=== PATIENT | female | born 1990 | race Two or more races ===

== ENCOUNTER 2020-05-09 18:20 | Inpatient (IN) | payer OTHER ==
[~2020-05-09] VITALS: Ht 165.1 cm; Wt 90.7 kg
--- NOTE | 2020-05-09 18:49 | NUR ---
SE RECIBE PACIENTE ALERTA Y ORIETNADA X 3. PACIENTE REFIERE TENER CONGESTION,DIFICULTAD RESPIRATORIO, DOLOR PELVICO POR MENSTRUACCION SE REALIZA SIGNOS VITALES.PACIETNE PRESENTA SATURACCION BAJA. SE COLOCA PACIENTE EN ASMA UNIT.
--- NOTE | 2020-05-09 19:25 | NUR ---
PT ALERTA Y ORIENTADA X3 ESFERAS SE LE ORIENTA SOBRE TX Y REFIERE ENTEDER. SE CELE MUESTRAS DE BONNIE Y VENOPUNCION CON TECNICAS ASEPTICAS. SE ADMINISTRAN MEDICAMENTOS E IVLFUIDS ORDENADOS. PT TOLERA TX. PENDIENTE CT DE PECHO. PENDIENTE ABG NOTIFICADAS A MS JESUS MANUEL.
--- NOTE | 2020-05-09 21:36 | NUR ---
7:45PM PTE SE LLEVA A AREA DE COVID SE COLOCA EN CAMA CON BARANDAS ELEVADAS.SE CONECTA A MONITOR CARDIACO Y OXIMETRIA.PTE SATURANDO A 35% POR SATUROMETRO. SE LE COLOCA NON REABRETHING AL 100%. 8:00PM ORDENA ENTUBACION ENDOTRAQUEAL PREVENTIVO. SE COMIENZA ENTUBACION. SE JEVON PTE CON 40ML DE PROPOFOL.PTE COMBATIVA EN TODO MOMENTO.SE RESTRINGE X5 PUNTOS,POR ORDEN MEDICA.SE SUCCIONA A PTE Y SE OBSERVAN 150ML DE RESIDUAL GASTRICO. 8:25PM RNA ELPIDIO, ENTUBA A PTE ENDOTRAQUEAL. 8:30PM SE JAVON CULTIVO DE ESPUTO. 8:45PM SE CANALIZA EN MANO DERECHA AREA AMPARO DE EDEMA Y DE ENROJECIMIENTO. SE COLOCA DRIP DE LEVOPHED 8MG/250ML BAJANDO A 5ML/HR. SE COLOCA DRIP DE PROPOFOL 100MG/100ML BAJANDO A 40ML/HR.SE COLOCA PTE EN POSICION HADDAD. SE COLOCA PTE PRIETO DRENANDO 50ML DE ORINA COLOR AMARILLO JAM. PTE AL MOMENTO SE ENCUENTRA EN MENSTRUACCION,SE LIMPIA Y SE LE COLOCA PAMPER. 9:00PM SE ENTREGA PTE A SOBEIDA.
--- NOTE | 2020-05-09 22:20 | NUR ---
9:00PM- SE RECIBE PTE ALERTA, ORIENTADA X 3 ESFERAS Y COMBATIVA EN CAMA CON CABECERA A 45 GRADOS Y BARANDAS ELEVADAS POR SEGURIDAD. INTUBADA CON TUBO 6.5 Y CONECTADA A VENTILADOR MECANICO EL CUAL PRESENTA LOS SIGUIENTES PARAMETROS: VT:500, MODE: CMV, PEEP:5, R:16 Y FIO2:100%. RECIBIENDO IV'S 0.9NSS BAJANDO A 120ML/HR POR VENOPUNCION EN BRAZO DERECHO LA CUAL SE ENCUENTRA AMPARO DE EDEMA Y ERITEMA. LEVOPHED 8MG/D5W 250ML BAJANDO A 5ML/HR Y PROPOFOL 1000MG/100ML BAJANDO A 20ML/HR POR VENOPUNCIONES EN BRAZO MT AMPARO DE EDEMA Y ERITEMA. RESTRINGIDA EN EXTREMIDADES INFERIORES Y SUPERIORES. SONDA URINARIA DRENANDO A GRAVEDAD. SE MANTIENE A PTE BAJO OBSERVACION. 9:30PM- PTE SE DUERME Y YA NO SE ENCUENTRA COMBATIVA. SE REALIZA SUCCION, PRESENTANDO SECRECIONES SANGUINOLENTAS. 10:00- SE SUCCIONA PTE Y SE MANTIENE BAJO OBSERVACION. 10:29PM- REALIZA ABG POST INTUBACION. SE MANTIENE EN OBSERVACION.
--- NOTE | 2020-05-09 22:57 | NUR ---
ORDENA VERBALMENTE ADMINISTRAR VERDED 100MG/100 0.9NSS A BAJAR A 5ML/HR Y BAJAR DRIP DE PROPOFOL A 20ML/HR.
--- NOTE | 2020-05-09 23:00 | NUR ---
PENDIENTE CT CHEST EL CUAL NO SE REALIZO DEBIDO A QUE PTE SE ENCUENTRA INESTABLE.
--- NOTE | 2020-05-09 23:05 | NUR ---
CT DE PECHO PENDIENTE DEBIDO A QUE PTE SE ENCUENTRA INESTABLE. SE NOTIFICA A . ORDENA CAMBIAR PARAMETROS DEL VENTILADOR: VT:450, PEEP:10, R:20.KelseyKEN EJECUTA ORDENES MEDICAS.
--- NOTE | 2020-05-10 00:11 | NUR ---
11:10PM SE RECIBE PTE DEL TURNO ANTERIOR, SEDADA, EN CAMA CONECTADA A MONITOR CARDIACO Y OXIMETRIA DE PULSO. CON ENTUBACION ENDOTRAQUEAL, CONECATDA A VENTILADOR MECANICO PARAMETROS: VT-450, MODE: SMV, PEEP-10, RR-20 Y O2-100%, AL MOMENTO SATURANDO 88% ROSARIO OXIMETRO DE PUL[place]. IV'S PATENTES Y LIBRES DE EDEMA O ERITEMA CON ANGIO #18 EN MANO RT Y ANGIOS #20 Y #18 EN MANO LT AL MOMENTO RECIBIENDO 0.9% NSS @120ML/HR, LEVOPHED 8MG/250ML @20ML/HR, VERSED 100MG/100ML @5ML/HR Y PROPOFOL 1000MG/100ML @20 ML/HR20 ML/HR. PTE RESTRINGIDA EN LAS 4 EXTREMIDADES. PRIETO PATENTE CON FECHA DE 05/09/20 CON APROXIMADAMENTE 100ML COLOR AMRILLO. RESIDUAL EN SUCCION DE TUBO ENDOTRAQUEAL 150ML APROXIMADAMENTE COLOR ORTIZ. PTE PENDIENTE A REALIZAR CT CHEST YA QUE SE ENCUENTRA INESTABLE. AL MOMENTO DE RECIBIR PTE DR VILLAGOMEZ SE ENCUENTRA EN EL AREA JUNTO CON PERSONAL DE TERAPIA RESPIRATORIA. DR VILLAGOMEZ ORDENA REALIZAR CAMBIO DE TUBO ENDOTRAQUEAL, MS Ernesto FREDERICK NOTIFICA A PERSONAL DE ANESTESIA PARA ENTUBAR [place] A PTE. S/V: B/P: 96/76 (82), P-107, R-24, SATURANDO 88%. PERSONAL DE ANESTESIA LLEGA AL AREA MR SELMA Y MR ELPIDIO. SE REALIZAN CAMBIOS EN DRIP DE VERSED A 10ML/HR Y PROFPOFOL 40ML/HR ROSARIO ORDEN MEDICA DE DR HERNANDO AZAR. 11:25PM SE ENTUBA PTE ENDOTRAQUEAL CON TUBO 7.[address] ELPIDIO, PERSONAL DE ANESTESIA CON LA ASISTENCIA DE MR HAHN, PERSONAL DE ANESTESIA Y MS SCHULZ, TERAPISTA RESPIRATORIA DE TURNO. S/V: B/P 124/87MMHG, P-142, R-45, SATURANDO 46%. SE MANTIENE PTE RECIBIENDO AMBU POR PERSONAL DE TERAPIA RESPIRATORIA. SE NOTIFICA A PERSONAL DE KARIE X PARA KARIE X PORTABLE STAT ROSARIO ORDEN MEDICA DE DR VILLAGOMEZ. SE MANTIENE PTE BAJO OBSERVACION CARMEN Y MONITOREO EN MONITOR CARDIACO Y OXIMETRIA DE PULSO. KARIE X PORTABLES REALIZADOS.
--- NOTE | 2020-05-10 00:37 | NUR ---
12:36AM SE ENVIA ORDEN MEDICA PARA REALIZAR ADMINISTRACION DE MEDICAMENTO MERREN CON ESCOLTA A SUPERVICION GENERAL. AL MOMENTO MEDICAMENTOS NO ESTA DISPONIBLE EN GRETCHEN.
== END 2020-05-28 18:09 | disposition home or self-care (01) | DRG 208 ==
LOC: ER 18:20 → ICU 05-10 00:52 → MEDJ 05-23 21:51
PROVIDERS: ADMIT Internal Medicine; ATTEND Internal Medicine
PROC: 5A1945Z Respiratory Ventilation, 24-96 Consecutive Hours (ICD-10-PCS; principal; 2020-05-09)
PROC: 0BH17EZ Insertion of Endotracheal Airway into Trachea, Via Natural or Artificial Opening (ICD-10-PCS; 2020-05-09)
PROC: XW043E5 Introduction of Remdesivir Anti-infective into Central Vein, Percutaneous Approach, New Technology Group 5 (ICD-10-PCS; 2020-05-10)
PROC: 02HV33Z Insertion of Infusion Device into Superior Vena Cava, Percutaneous Approach (ICD-10-PCS; 2020-05-10)
PROC: 3E0F7SF Introduction of Other Gas into Respiratory Tract, Via Natural or Artificial Opening (ICD-10-PCS; 2020-05-10)
PROC: 8E0ZXY6 Isolation (ICD-10-PCS; 2020-05-10)
PROC: 4A12X4Z Monitoring of Cardiac Electrical Activity, External Approach (ICD-10-PCS; 2020-05-23)
DX: U07.1 COVID-19 (principal); J12.82 Pneumonia due to coronavirus disease 2019; J80 Acute respiratory distress syndrome; A41.9 Sepsis, unspecified organism; R65.21 Severe sepsis with septic shock; I50.31 Acute diastolic (congestive) heart failure; I26.99 Other pulmonary embolism without acute cor pulmonale; I51.3 Intracardiac thrombosis, not elsewhere classified; R53.81 Other malaise